=== PATIENT | female | born 1945 | race Caucasian/White ===

== ENCOUNTER 2022-01-13 16:01 | Emergency (ER) | payer MEDICARE, SELFPAY ==
--- NOTE | ~2022-01-13 | XR_ITS ---
XR foot LT min 3V DATE: 01/13/2022 16:37 INDICATION: Generalized left foot pain. No known injury. TECHNIQUE: 4 views COMPARISON: None FINDINGS: There is osteopenia. There is nonspecific soft tissue swelling of the forefoot. There is plantar and posterior calcaneal enthesopathy. There may be a fracture of undetermined age of the inferior plantar spur. Otherwise no fracture or dislocation, periosteal reaction or bone destruction is detected. Joint spac es are preserved. No erosive change is noted. IMPRESSION: Plantar and posterior calcaneal enthesopathy; fracture of undetermined age of inferior pl va spur is suspected. Nonspecific soft tissue swelling of the forefoot Osteopenia Reviewed, dictated and finalized at location A. [facility] P[facility]OT IMPRESSION: Plantar and posterior calcaneal enthesopathy; fracture of undetermi robert age of inferior plantar spur is suspected. Nonspecific soft tissue swelling of the forefoot Osteopenia
[2022-01-13 16:12] VITALS: BP 160/64; PULSE 67; RESP 14; TEMP 36.5; O2SAT 98
[2022-01-13 16:32] VITALS: BP 160/64; PULSE 67; RESP 14; TEMP 36.5; O2SAT 98
--- NOTE | 2022-01-13 16:38 | PC.NURSE ---
PT DECLINED WHEELCHAIR AND ICE FOR COMFORT
--- NOTE | 2022-01-13 16:53 | ED.LOWEXIN ---
HPI - Extremity Injury (Lower) General Chief Complaint: Extremity Injury, Lower Stated Complaint: Left Foot Pain Time Seen by Provider: 01/13/22 16:15 Source: patient Mode of arrival: ambulatory Limitations: no limitations History of Present Illness HPI Narrative: Jessica is a 76-year-old female patient presenting to the clinic today with complaints of left foot pain x5 days. She reports that she has been on her feet a lot here over the last 3 weeks cooking. States that she has pain to the top of her foot and also to the bottom of her foot. She has a history of plantar fasciitis and she has been using an ice bottle to help stretch out the plantar fascia. Related Data Home Medications Medication Instructions Recorded Confirmed amlodipine 10 mg tablet 10 mg PO DAILY 01/13/22 01/13/22 atorvastatin 40 mg tablet 40 mg PO DAILY 01/13/22 01/13/22 carvedilol 25 mg tablet 25 mg PO BID 01/13/22 01/13/22 ferrous sulfate 325 mg (65 mg 325 mg PO BID 01/13/22 01/13/22 iron) tablet furosemide 40 mg tablet 40 mg PO DAILY 01/13/22 01/13/22 glimepiride 4 mg tablet 4 mg PO BID 01/13/22 01/13/22 lisinopril 10 mg tablet 10 mg PO DAILY 01/13/22 01/13/22 metformin 1,000 mg tablet 100 mg PO BID 01/13/22 01/13/22 potassium chloride 20 mEq 20 meq PO Q48H 01/13/22 01/13/22 tablet,extended release(part/cryst) (Klor-Con M) Allergies Allergy/AdvReac Type Severity Reaction Status Date / Time Penicillins Allergy Mild Rash Verified 01/13/22 16:27 Review of Systems Review of Systems: Pertinent positives per HPI. Patient denies any fever, chills, rash, headache, visual changes, dizziness, cough, runny nose, sore throat, shortness of breath, chest pain, palpitations, nausea, vomiting, diarrhea, constipation, abdominal pain, or any urinary issues. PMFSH Comments At the time of my signature, I reviewed and agree with the nursing past medical, surgical, social, and family history. There is no relevant family history pertinent to the patient complaint. Exam Narrative: General: Well-developed, well nourished, in no apparent distress Head: Normocephalic, atraumatic. Cardio: Regular rate and rhythm, s1 and s2 normal, no murmur appreciated. Resp: Clear to auscultation bilaterally, no rhonchi, rales, wheezing or rubs. Musculoskeletal: No deformity, Tender to palpation over the left lateral foot and lateral dorsal foot, mild pain with valgus and varus position, grossly normal range of motion, muscle strength strong and equal, peripheral pulse strong, 1+ pitting edema, no cyanosis, normal gait and station Course Course Emergency Course: Portions of this record may have been created with voice recognition software. Level of Care: Express Care Visit Vital Signs Vital signs: Vital Signs Temperature 36.5 C 01/13/22 16:12 Pulse Rate 67 01/13/22 16:12 Respiratory Rate 14 01/13/22 16:12 Blood Pressure 160/64 H 01/13/22 16:12 Pulse Oximetry 98 01/13/22 16:12 Oxygen Delivery Room Air 01/13/22 16:12 Temperature 36.5 C 01/13/22 16:32 Pulse Rate 67 01/13/22 16:32 Respiratory Rate 14 01/13/22 16:32 Blood Pressure 160/64 H 01/13/22 16:32 Pulse Oximetry 98 01/13/22 16:32 Oxygen Delivery Room Air 01/13/22 16:32 Vital signs reviewed MDM - Extremity Injury (Lower) MDM Narrative Medical decision making narrative: at the time of visit patient is resting comfortably on the exam table. X-ray is negative for any acute fracture. I suspect the patient has swelling and discomfort due to overuse. Discussed supportive measures and she voiced understanding of discharge instructions and agrees to treatment plan. Differential Diagnosis Differential diagnosis: Likely other ( Foot fracture, soft tissue injury, foot sprain) Imaging Data Radiologist's impression: [facility] [address] [place] [address] [place] [address] XRay Report Signed Patient: Jessica Bello :
== END 2022-01-13 17:00 | disposition home or self-care (01) ==
PROVIDERS: Emergency Provider Nurse Practitioner Family; PCP Family Medicine
DX: M79.672 Pain in left foot (principal); M79.89 Other specified soft tissue disorders
CPT/HCPCS: 73630; 99213; G0463